=== PATIENT | female | born 1955 | race Caucasian/White ===

== ENCOUNTER 2023-10-07 16:36 | Emergency (ER) | payer BC, MEDICARE ==
[~2023-10-07] VITALS: Ht 157.5 cm; Wt 72.6 kg
[2023-10-07] MEDS ORDERED: NAPR-1192 PO (18:35)
[2023-10-07 19:01] VITALS: BP 135/72; TEMP 98; O2SAT 100
== END 2023-10-07 19:01 | disposition home or self-care (01) ==
LOC: ER 16:36
DX: M75.41 Impingement syndrome of right shoulder (principal); M25.511 Pain in right shoulder; W01.0XXA Fall on same level from slipping, tripping and stumbling without subsequent striking against object, initial encounter; Y93.89 Activity, other specified; Y92.89 Other specified places as the place of occurrence of the external cause; Y99.8 Other external cause status
CPT/HCPCS: 73030-TC